=== PATIENT | female | born 1995 | race Caucasian/White ===

== ENCOUNTER → 2022-08-21 10:18 | Outpatient (CLI) | payer OTHER, SELFPAY ==
[2022-08-22 20:48] LABS: Strep Grp B PCR POS for Grp B Strep
== END ==
PROVIDERS: Visit Provider Specialist
DX: O10.913 Unspecified pre-existing hypertension complicating pregnancy, third trimester (principal); Z3A.35 35 weeks gestation of pregnancy
CPT/HCPCS: 87653

== ENCOUNTER → 2022-08-21 10:29 | Outpatient (CLI) | payer OTHER, SELFPAY ==
[2022-08-21 12:44] LABS: Add Manual Diff / Slide Review NO; Basophils Absolute Auto 0 /uL (0-100); Basophils Percent Auto 0.7 % (0-2); Eosinophils Absolute Auto 0 /uL (0-450); Eosinophils Percent Auto 0.5 % (2-4); Hematocrit 33.9 % (36-46); Hemoglobin 11.3 g/dL (12.0-16.0); Lymphocytes Absolute Auto 1200 /uL (1100-4500); Lymphocytes Percent Auto 19.3 % (25-40); Mean Corpuscular HGB Conc 33.2 % (30-36); Mean Corpuscular Volume 84.6 fL (80-100); Monocytes Absolute Auto 300 /uL (0-900); Monocytes Percent Auto 5.4 % (3-14); Neutrophils Absolute Auto 4600 /uL (1500-7000); Neutrophils Percent Auto 74.1 % (50-75); Platelet Count 164 X10^3/uL (150-400); Red Blood Cell Count 4.01 X10^6/uL (4.0-5.2); Red Cell Distribution Width 13.6 % (11.6-14.8); White Blood Cell Count 6.2 X10^3/uL (4.5-11.0)
[2022-08-21 13:26] LABS: Alanine Aminotransferase 13 IU/L (<35); Aspartate Aminotransferase 13 IU/L (14-36); BUN Creatinine Ratio 15.1 (6-22); Blood Urea Nitrogen 8 mg/dL (7-17); Estimated Glomerular Filt Rate > 60 mL/min (>60); Uric Acid 4.5 mg/dL (2.5-6.2)
== END ==
PROVIDERS: Referring Provider Specialist; Visit Provider Specialist
DX: O10.913 Unspecified pre-existing hypertension complicating pregnancy, third trimester (principal)
CPT/HCPCS: 36415; 82565; 84450; 84460; 84520; 84550; 85025; 87653

== ENCOUNTER 2022-08-21 10:37 | Outpatient (CLI) | payer OTHER, SELFPAY ==
--- NOTE | 2022-08-21 13:15 | P.TNLD_ITS ---
Visit Information Visit Information Date of evaluation: 08/21/22 Primary OB Provider: Taqueria Mota On-call OB Provider: Leila Alcala Reason for Evaluation: Yes non-stress test non-stress test reason: hypertension/pre-eclampsia Vital Signs Vital Signs: Blood pressure 122/74 [facility] Medical History (Updated 08/21/22 @ 13:16 by Leila Alcala MD) Anxiety Migraine hemorrhage Preeclampsia Surgical History (Updated 08/15/22 @ 10:18 by Elo Chen, RN) H/O endoscopy History of shoulder surgery Family History (Updated 08/15/22 @ 10:23 by Elo Chen, RN) Grandfather Heart disease Heart attack Melanoma Mother Gallstones Hx of cholecystectomy Father Depression Social History marital status: number of children: 1 household members: spouse and children lives independently: Yes housing: house pets and animals: Yes education level: college (some college) occupational status: previously employed current occupational exposures/hazards: No special soledad needs: No travel history: recent (domestic move only) water heater temp set < 120 deg: Yes working smoke detector in home: Yes fire extinguisher in home: Yes carbon monox detector in home: Yes firearms in home: No do you feel safe at home: Yes Smoking Status: Never smoker second hand exposure: No alcohol intake: former (occasionally when not ) substance use type: does not use during the past year weight has: remained stable well-balanced diet: daily or most days daily servings fruits/ve-4 caffeine: Yes (aware of 200mg limit) Type(s) of exercise: walking frequency: daily duration: 15-30 minutes/day Evaluation Evaluation Baseline heart rate: 130 Variability: Moderate (11-25) monitor accelerations: Present Monitor Decelerations: Absent Contraction Frequency (minutes): 8 Uterine Contraction Intensity: Mild Category of Tracing: Reactive Status: Category l Diagnosis, Plan/Disposition Final Diagnosis (1) Chronic hypertension with exacerbation during in third trimester: Status: Acute (2) 35 weeks gestation of : Status: Acute Plan/Disposition Plan: Baseline pH labs were drawn and pending. Patient will be having weekly nonstress test for chronic hypertension. OB Disposition: home
== END 2022-08-21 11:36 | disposition home or self-care (01) ==
LOC: LABOR 11:23 → OB 08-28 14:12
PROVIDERS: Referring Provider Family Medicine; Visit Provider Family Medicine
DX: O10.913 Unspecified pre-existing hypertension complicating pregnancy, third trimester (principal); Z3A.35 35 weeks gestation of pregnancy
CPT/HCPCS: 36415; 59025; 82565; 84450; 84460; 84520; 84550; 85025; 87653; G0378; G0379

== ENCOUNTER 2022-08-29 14:27 | Outpatient (CLI) | payer OTHER, SELFPAY ==
--- NOTE | 2022-08-29 15:21 | P.TNLD_ITS ---
Visit Information Visit Information Date of evaluation: 08/29/22 Primary OB Provider: Leila Alcaal Reason for Evaluation: Yes non-stress test non-stress test reason: hypertension/pre-eclampsia Vital Signs Vital Signs: Blood pressure 131/84, pulse 100, temperature 36.1? [facility] Medical History (Updated 08/29/22 @ 14:24 by Leila Alcala MD) Anxiety (~2008) Depression (~2008) Migraine hemorrhage Preeclampsia Surgical History (Updated 08/28/22 @ 20:47 by Candy Salgado) Anesthesia H/O endoscopy (~2009) History of shoulder surgery (~2010) Family History (Updated 08/28/22 @ 20:49 by Candy Salgado) Grandfather Heart disease Heart attack Melanoma Cancer Mother Gallstones Hx of cholecystectomy Depression Anxiety Mental health problem Father Depression Mental health problem Grandmother Heart disease Social History marital status: number of children: 1 household members: spouse and children lives independently: Yes housing: house pets and animals: Yes education level: college (some college) occupational status: previously employed current occupational exposures/hazards: No special soledad needs: No travel history: recent (domestic move only) water heater temp set < 120 deg: Yes working smoke detector in home: Yes fire extinguisher in home: Yes carbon monox detector in home: Yes firearms in home: No do you feel safe at home: Yes Smoking Status: Never smoker second hand exposure: No alcohol intake: former (occasionally when not ) substance use type: does not use during the past year weight has: remained stable well-balanced diet: daily or most days daily servings fruits/ve-4 caffeine: Yes (aware of 200mg limit) Type(s) of exercise: walking frequency: daily duration: 15-30 minutes/day Evaluation Evaluation Baseline heart rate: 125 Variability: Moderate (11-25) monitor accelerations: Present Monitor Decelerations: Absent Category of Tracing: Reactive Status: Category l Comments: Ultrasound good amniotic fluid volume, good movement, tone, breathing Diagnosis, Plan/Disposition Final Diagnosis (1) 37 weeks gestation of : Status: Acute (2) Chronic hypertension with exacerbation during in third trimester: Status: Acute Plan/Disposition Plan: Patient is to increase her labetalol to 100 mg in a.m., 100 mg mid day, and 200 mg p.m. as she states the higher dose of labetalol makes her feel slightly dizzy. Continue weekly exams and biophysical profiles. OB Disposition: home
== END 2022-08-29 15:25 | disposition home or self-care (01) ==
LOC: LABOR 14:30 → OB 08-30 11:04
PROVIDERS: Referring Provider Family Medicine; Visit Provider Family Medicine
DX: O10.913 Unspecified pre-existing hypertension complicating pregnancy, third trimester (principal); Z3A.37 37 weeks gestation of pregnancy
CPT/HCPCS: 59025; 76815; G0378; G0379

== ENCOUNTER 2022-09-06 13:04 | Outpatient (CLI) | payer OTHER, SELFPAY | END 2022-09-06 13:40 | disposition home or self-care (01) | LOC: LABOR 13:50 → OB 09-10 08:51 | PROVIDERS: Referring Provider Obstetrics & Gynecology; Visit Provider Obstetrics & Gynecology | DX: O13.3 Gestational [pregnancy-induced] hypertension without significant proteinuria, third trimester (principal); Z3A.38 38 weeks gestation of pregnancy | CPT/HCPCS: 59025; G0378; G0379 ==

== ENCOUNTER 2022-09-10 02:07 | Inpatient (IN) | payer OTHER, SELFPAY ==
[2022-09-10 04:33] LABS: Add Manual Diff / Slide Review NO; Basophils Absolute Auto 0 /uL (0-100); Basophils Percent Auto 0.5 % (0-2); Eosinophils Absolute Auto 0 /uL (0-450); Eosinophils Percent Auto 0.5 % (2-4); Hematocrit 35.7 % (36-46); Hemoglobin 11.8 g/dL (12.0-16.0); Lymphocytes Absolute Auto 1700 /uL (1100-4500); Mean Corpuscular HGB Conc 33.2 % (30-36); Mean Corpuscular Hemoglobin 28.5 PG (26-34); Mean Corpuscular Volume 85.9 fL (80-100); Monocytes Absolute Auto 400 /uL (0-900); Monocytes Percent Auto 6.5 % (3-14); Neutrophils Absolute Auto 4300 /uL (1500-7000); Neutrophils Percent Auto 66.5 % (50-75); Platelet Count 137 X10^3/uL (150-400); Red Blood Cell Count 4.16 X10^6/uL (4.0-5.2); Red Cell Distribution Width 17.1 % (11.6-14.8); White Blood Cell Count 6.5 X10^3/uL (4.5-11.0)
[2022-09-10] MEDS: PENICILLIN G POTASSIUM 5,000,000 UNIT in DEXTROSE 5% IN WATER 250 ML 250 UNIT IV (04:33)
[2022-09-10] MEDS: LACTATED RINGERS 1,000 ML 100 ML IV ×2 (04:33→07:23)
[2022-09-10 04:40] LABS: Aspartate Aminotransferase 13 IU/L (14-36); BUN Creatinine Ratio 17.2 (6-22); Blood Urea Nitrogen 10 mg/dL (7-17); COVID19 -Nasal RAPID Negative (Negative); Estimated Glomerular Filt Rate > 60 mL/min (>60); Uric Acid 5.8 mg/dL (2.5-6.2)
[2022-09-10 05:47] VITALS: BP 167/94; PULSE 102
[2022-09-10] MEDS: LABETALOL 20 MG/4 ML SYRINGE 10 MG IV (05:47)
[2022-09-10 06:33] VITALS: BP 148/89
[2022-09-10 06:57] LABS: Add Manual Diff / Slide Review NO; Basophils Absolute Auto 0 /uL (0-100); Basophils Percent Auto 0.6 % (0-2); Eosinophils Absolute Auto 0 /uL (0-450); Eosinophils Percent Auto 0.3 % (2-4); Hematocrit 34.5 % (36-46); Hemoglobin 11.5 g/dL (12.0-16.0); Lymphocytes Absolute Auto 1400 /uL (1100-4500); Lymphocytes Percent Auto 21.4 % (25-40); Mean Corpuscular HGB Conc 33.5 % (30-36); Mean Corpuscular Hemoglobin 28.7 PG (26-34); Mean Corpuscular Volume 85.8 fL (80-100); Monocytes Absolute Auto 500 /uL (0-900); Monocytes Percent Auto 6.8 % (3-14); Neutrophils Absolute Auto 4800 /uL (1500-7000); Neutrophils Percent Auto 70.9 % (50-75); Platelet Count 133 X10^3/uL (150-400); Red Blood Cell Count 4.02 X10^6/uL (4.0-5.2); Red Cell Distribution Width 17.2 % (11.6-14.8); White Blood Cell Count 6.7 X10^3/uL (4.5-11.0)
[2022-09-10 07:06] LABS: Aspartate Aminotransferase 14 IU/L (14-36); BUN Creatinine Ratio 15.1 (6-22); Blood Urea Nitrogen 8 mg/dL (7-17); Estimated Glomerular Filt Rate > 60 mL/min (>60); Uric Acid 5.3 mg/dL (2.5-6.2)
[2022-09-10] MEDS: FENT 2MCG/ML BUPIV 0.125% EPI 200 MCG/100 ML PLAST..BAG 8 MCG EPIDURAL (07:06)
--- NOTE | 2022-09-10 07:21 | P.HPOB_ITS ---
OB HPI Date/Time Date of admission: 09/10/22 Date Patient Seen: 09/10/22 Time Patient Seen: 07:21 History of Present Condition Chief complaint: Labor NATALIIA Calculator Estimated Delivery Date Method Current WG Current Estimate 09/19/22 Manual 38w 5d Estimated Gestational Age (weeks): 39 : 2 Para: 1 Narrative: Patient is a 27-year-old 2 para 1 who transferred at 35 weeks gestation from [place]. She has had some elevated blood pressures over her last few office visits. She was scheduled for an induction this morning but came in in active labor at 3:00 a.m.. Patient had an epidural placed. care: good care, number of visits (10) and pounds weight gain (22) Dating criteria OB: LMP confirmed by 1st trimester US Ultrasounds: normal 1st trimester US and normal mid trimester US Obstetrical complications: gestational hypertension Medical complications OB: none Preadmission Labs Last OB Lab Results: Blood Type O Positive 09/10/22 04:00 Antibody Screen Negative 09/10/22 04:00 Hematocrit 34.5 % (36-46) L 09/10/22 06:40 Hemoglobin 11.5 g/dL (12.0-16.0) L 09/10/22 06:40 Group B Streptococcus (PCR) Pos for grp b strep H 08/21/22 10:1 8 -: Chlamydia screen: negative, Gonorrhea screen: negative and Urine: negative -: PAP smear: Normal External Labs -: Urine: negative Prior (ies) Past Pregnancies Del. Date GA/Weeks Labor Lgth Wt Sex Route Outcome Anesthesia Place Delv Breastfeed Preg Comp Name 11/05/18 37.3 24 6 lb 6 oz Male vaginal live - full [place], [place] 18 months pre-eclampsia José Manuel Delivery Date: 11/05/18 Last Updated by: Elo Chen RN cord -> PPH requiring transfusion Evaluation Evaluation Baseline heart rate: 120 Variability: Moderate (11-25) monitor accelerations: Present Monitor Decelerations: Absent Contraction Frequency (minutes): 4 Uterine Contraction Intensity: Strong/Firm Status: Category l Dilation (cm): 5 Effacement (%): 100 station: -1 [facility] Medical History (Updated 09/06/22 @ 15:30 by Maya Ramos PA-C) 37 weeks gestation of Anxiety (~2008) Depression (~2008) Migraine hemorrhage Preeclampsia Surgical History (Updated 08/28/22 @ 20:47 by Candy Salgado) Anesthesia H/O endoscopy (~2009) History of shoulder surgery (~2010) Family History (Updated 08/28/22 @ 20:49 by Candy Salgado) Grandfather Heart disease Heart attack Melanoma Cancer Mother Gallstones Hx of cholecystectomy Depression Anxiety Mental health problem Father Depression Mental health problem Grandmother Heart disease Social History marital status: number of children: 1 household members: spouse and children lives independently: Yes housing: house pets and animals: Yes education level: college (some college) occupational status: previously employed current occupational exposures/hazards: No special soledad needs: No travel history: recent (domestic move only) water heater temp set < 120 deg: Yes working smoke detector in home: Yes fire extinguisher in home: Yes carbon monox detector in home: Yes firearms in home: No do you feel safe at home: Yes Smoking Status: Never smoker second hand exposure: No alcohol intake: former (occasionally when not ) substance use type: does not use during the past year weight has: remained stable well-balanced diet: daily or most days daily servings fruits/ve-4 caffeine: Yes (aware of 200mg limit) Type(s) of exercise: walking frequency: daily duration: 15-30 minutes/day Meds Home Medications and Allergies Home Medications Medication Instructions Recorded Confirmed Type aspirin 81 mg tablet,delayed 81 mg PO DAILY 08/15/22 09/10/22 History release labetalol 100 mg tablet 100 mg PO TID 08/15/22 09/10/22 History prenat.vits,raghavendra,[id number] 1 tab PO DAILY 08/15/22 09/10/22 History venlafaxine 150 mg 150 mg PO DAILY 08/15/22 09/10/22 History capsule,extended release 24 hr (Effexor XR) Allergies Allergy/AdvReac Type Severity Reaction Status Date / Time No Known Drug Allergies Allergy Verified 09/10/22 04:34 OB Exam Narrative Exam Narrative: Generally: Patient comfortable with epidural Lungs: Clear to auscultation bilaterally Cardiovascular: Regular rate and rhythm Fundal height: 39 cm Estimated weight: 7 lb Extremities: Trace edema, 1+ DTRs Objective Labs Result Diagrams: 09/10/22 06:40 09/10/22 06:40 Labs: Laboratory Results - last 24 hr 09/10/22 09/10/22 09/10/22 04:00 04:00 04:00 WBC 6.5 RBC 4.16 Hgb 11.8 L Hct 35.7 L MCV 85.9 MCH 28.5 MCHC 33.2 RDW 17.1 H Plt Count 137 L Neut % (Auto) 66.5 Lymph % (Auto) 26.0 [place] % (Auto) 6.5 Eos % (Auto) 0.5 L Baso % (Auto) 0.5 Neut # (Auto) 4300 Lymph # (Auto) 1700 [place] # (Auto) 400 Eos # (Auto) 0 Baso # (Auto) 0 BUN 10 Creatinine 0.58 Estimated GFR > 60 BUN/Creatinine Ratio 17.2 Uric Acid 5.8 AST 13 L SARS-CoV-2 (PCR) Blood Type O Positive Antibody Screen Negative 09/10/22 09/10/22 09/10/22 04:00 06:40 06:40 WBC 6.7 RBC 4.02 Hgb 11.5 L Hct 34.5 L MCV 85.8 MCH 28.7 MCHC 33.5 RDW 17.2 H Plt Count 133 L Neut % (Auto) 70.9 Lymph % (Auto) 21.4 L [place] % (Auto) 6.8 Eos % (Auto) 0.3 L Baso % (Auto) 0.6 Neut # (Auto) 4800 Lymph # (Auto) 1400 [place] # (Auto) 500 Eos # (Auto) 0 Baso # (Auto) 0 BUN 8 Creatinine 0.53 Estimated GFR > 60 BUN/Creatinine Ratio 15.1 Uric Acid 5.3 AST 14 SARS-CoV-2 (PCR) Negative Blood Type Antibody Screen Assessment and Plan Assessment and Plan Assessment and Plan narrative: Assessment: 27-year-old 2 para 1 at estimated gestational age of 39 weeks gestation Was scheduled for induction this morning due to gestational hypertension, but came in in active labor Comfortable with epidural Group B strep positive Plan: Group B strep prophylaxis started Will wait to rupture membranes and till second dose is in Expected management to spontaneous vaginal delivery Time Spent with Patient Total time spent with greater than 50% in coordination of care (as documented) at patient's floor/unit and/or counseling patient:: 15-24 minutes
[2022-09-10] MEDS: PENICILLIN G POTASSIUM 3,000,000 UNIT/50 ML FROZ.PIGGY 100 UNIT IV (09:19)
--- NOTE | 2022-09-10 13:08 | PM.OBPNLAB ---
Date/Time Date Patient Seen: 09/10/22 Time Patient Seen: 13:08 Pain Control Pain control: epidural Pelvic Exam Dilation (cm): 10 Effacement (%): 100 station: +2 Amniotic membrane status: Bulging Contractions Contractions on admission: regular Monitor mode: External Contraction frequency (min): 3 Contraction duration (min): 1 Contraction pattern: Regular Contraction intensity: Strong/Firm Status status: Category l Heart Rate Baseline: 120 Monitor Accelerations: Present Monitor Decelerations: Absent Monitor Variability: Moderate Assessment and Plan Assessment: active labor Comments: Begin pushing Expectant management to
--- NOTE | 2022-09-10 13:42 | P.PCNOB_ITS ---
Events: Induced HTN Labor & Delivery Delivery date: 09/10/22 Cervical ripening method: none Induction method: none Delivery augmentation: rupture of membranes Delivery monitor: external FHT and external uterine Route of delivery: Episiotomy description: None L&D Laceration Description: Superficial (periurethral) Delivery repair: chromic Estimated blood loss (mL): 150 Anesthesia Type: Epidural Complications: None Narrative: Artificial rupture membranes was performed with copious clear amniotic fluid. The patient pushed with 2 contractions. At 1:18 p.m., a live female delivered spontaneously in the MARSHA presentation. No nuchal cord. The remainder of the body delivered and there was found to be a body cord which was reduced. The was placed on mom's abdomen. The cord was double clamped and cut after the cord stopped pulsing. Cord bloods were obtained. The placenta delivered intact with a three-vessel cord at 1:26 p.m.. Fundus was massaged to firm. Pitocin was given in the IV fluids after cord bloods were obtained. Bilateral superficial periurethral lacerations were repaired with 3-0 chromic in the usual fashion. Hemostasis was achieved. Weight 7 lb 0.4 oz. Apgars 7 at 1 minute 9 at 5 minutes. . Epidural analgesia. Mom and infant stable to recovery. Estimated blood loss 150 cc. [place] Baby 1: Infant gender: Female Presentation: vertex Position: Left Occiput Anterior Placenta delivery description: Spontaneous Cord Vessel Description: 3 Vessels, Clamped/Cut and Around Body x1 score (1 min): 7 score (5 min): 9 weight: 7 lb 0.4 oz Plan for aftercare: Routine care
--- NOTE | 2022-09-10 18:21 | P.EN_ITS ---
Event Note Date Patient Seen: 09/10/22 Time Patient Seen: 18:21 Event Note (Rapid Response, Code, or fall): Called to see patient 5 hours after delivery for passing out after standing up from the bed. Upon entering the room the patient was lying in the bed. Her bleeding was moderate. Blood pressure 117/68. Patient reports that she stood up next to the bed and felt faint and was put down on the bed again. No significant bleeding. A Ramirez catheter was placed and there was very conc entrated urine in the bladder. A fluid bolus was given. Patient was stable.
[2022-09-10 22:06] VITALS: BP 132/93; PULSE 92
[2022-09-10] MEDS: LABETALOL 100 MG TABLET PO (22:06)
[2022-09-11] MEDS: ACETAMINOPHEN 325 MG TABLET 650 MG PO ×3 (01:41→15:08)
[2022-09-11] MEDS: IBUPROFEN 600 MG TABLET PO ×3 (01:41→15:08)
[2022-09-11 06:37] LABS: Hematocrit 27.2 % (36-46); Hemoglobin 9.2 g/dL (12.0-16.0)
[2022-09-11] MEDS: PRENATAL VIT,CALC/IRON/FOLIC 1 TABLET 1 TAB PO (09:13)
[2022-09-11] MEDS: DOCUSATE 100 MG CAPSULE PO (09:14)
[2022-09-11] MEDS: VENLAFAXINE ER 75 MG CAP 150 MG PO (09:14)
[2022-09-11 09:15] VITALS: TEMP 36.4
[2022-09-11 10:35] VITALS: BP 133/87; PULSE 103
[2022-09-11] MEDS: LABETALOL 100 MG TABLET PO (10:35)
[2022-09-11 11:00] VITALS: BP 113/80; PULSE 104
--- NOTE | 2022-09-11 12:53 | P.DS_ITS ---
Discharge Providers Provider Date of admission: 09/10/22 02:07 Discharge Date: 09/11/22 Consults: 09/11/22 13:37 Consult to Patient Intake Coordinator Routine Comment: Discharge provider: Robina Covarrubias MD Summary Hospital Course Date Patient Seen: 09/11/22 Time Patient Seen: 12:53 Diagnoses: 38-,5/7 weeks gestation Spontaneous labor Epidural analgesia Artificial rupture of membranes Spontaneous vaginal delivery Bilateral periurethral superficial laceration and repair Syncopal episode following delivery Hospital Course: Patient is a 27-year-old 2 para 2 who presented at 3:00 a.m. on September 10, 2022 in active labor. She received an epidural for pain management. Just before delivery artificial rupture of membranes was performed with copious clear amniotic fluid. She had a spontaneous vaginal delivery without complication. She had bilateral periurethral superficial lacerations which were repaired. 5 hours after delivery she had a syncopal episode upon getting out of bed. Blood pressure was stable. She was found to have very concentrated urine. A fluid bolus was given and she felt much better. She is discharged home on day # 1. Peripartum Data Delivery Method: Natural Vaginal Laceration Description: Superficial (Bilateral periurethral) Episiotomy description: None Procedures: Epidural analgesia Artificial rupture of membranes Spontaneous vaginal delivery Repair of superficial periurethral laceration complications: other (Syncope episode) 1: Gender: Female Disposition of : home Status at Discharge Cognitive/behavioral status at discharge: oriented Functional status at discharge: independent ambulation Overall status at discharge: patient is progressing back to baseline Time Spent with Patient Time attestation: Total time spent providing and/or coordinating discharge services: Time spent: Less than 30 minutes Objective Labs Result Diagrams: 09/11/22 06:18 09/10/22 06:40 Labs: Laboratory Results - last 24 hr 09/11/22 06:18 Hgb 9.2 L Hct 27.2 L Exam Vital Signs (past 8 hours): - 09/11/22 09:15 09/11/22 09:15 09/11/22 10:35 Temperature 97.5 F L 97.5 F L Pulse Rate 103 H Blood Pressure 133/87 Narrative Exam Narrative: Generally: Patient is sitting up in bed, no acute distress Fundus: Firm at U -1 Extremities: Trace edema, negative Hom[place] Discharge Plan Discharge Plan Patient Disposition: Home Provider Discharge Comment: Call with fever, chills, or bleeding vaginally more than a pad in an hour Ibuprofen 600 mg every 6 hours as needed for cramping Tylenol 650 mg every 6 hours as needed Discharge orders & Medications Prescriptions: New labetalol 100 mg tablet 100 mg PO BID Qty: 60 3RF Continued prenat.vits,raghavendra,[id number] Tablet 1 tab PO DAILY venlafaxine [Effexor XR] 150 mg capsule,extended release 24hr 150 mg PO DAILY Discontinued labetalol 100 mg tablet 100 mg PO TID aspirin 81 mg tablet,delayed release (DR/EC) 81 mg PO DAILY Follow up/Referrals: Maya Ramos PACamC [Advanced Type Disk Quality Control Supervisor] - 6 Weeks Diet/Activity/Treatments Diet: Regular Skin/Wound/Dressing Care Report to your healthcare provider any signs of infection, such as:: chills, fever, increased pain and unusual drainage Visit Report/Discharge Packet Instructions: DI for Labor and Delivery, Vaginal
[2022-09-11 14:09] VITALS: BP 121/84; PULSE 100; RESP 18; TEMP 36.8
== END 2022-09-11 15:30 | disposition home or self-care (01) | DRG 807 ==
PROVIDERS: Admitting Provider Obstetrics & Gynecology; Referring Provider Obstetrics & Gynecology; Visit Provider Obstetrics & Gynecology
DX: O13.4 Gestational [pregnancy-induced] hypertension without significant proteinuria, complicating childbirth (principal); Z37.0 Single live birth; O14.94 Unspecified pre-eclampsia, complicating childbirth; O99.820 Streptococcus B carrier state complicating pregnancy; Z3A.38 38 weeks gestation of pregnancy; O71.82 Other specified trauma to perineum and vulva; O99.893 Other specified diseases and conditions complicating puerperium; R55 Syncope and collapse; Z20.822 Contact with and (suspected) exposure to COVID-19
CPT/HCPCS: 01967; 36415; 59050; 59410; 84450; 84550; 85014; 85018; 85025; 86850; 86900; 86901; 87635; C9803; G0379; J2540

== ENCOUNTER → 2022-10-25 12:24 | Outpatient (CLI) | payer OTHER, SELFPAY ==
[2022-10-26 16:29] LABS: Candida species Negative (Negative); Gardnerella vaginalis Positive (Negative); Trichomoas vaginalis Negative (Negative)
== END ==
PROVIDERS: Visit Provider Physician Assistant Medical
DX: N89.8 Other specified noninflammatory disorders of vagina (principal)
CPT/HCPCS: 87480; 87510; 87660

== ENCOUNTER → 2022-11-21 11:29 | Outpatient (CLI) | payer OTHER, SELFPAY ==
[2022-11-21 13:19] LABS: Appearance Urine UA SL CLOUDY; Bilirubin Urine UA NEGATIVE (NEGATIVE); Color Urine UA YELLOW; Glucose Urine UA NEGATIVE (Negative); Ketones Urine UA NEGATIVE (NEGATIVE); Leukocyte Esterase Urine UA NEGATIVE (NEGATIVE); Nitrite Urine UA POSITIVE (Negative); Occult Blood Urine UA TRACE-LYSED (Negative); Protein Urine UA NEGATIVE (Negative); Urobilinogen Urine UA 0.2 E.U./dL (0.2)
[2022-11-21 13:26] LABS: Bacteria Urine Many (>30); Culture Indicated Urine Cult Not Indicated; RBC Urine None Seen (0-5/HPF); Squamous Epithelial Cell Urine 1-5 /HPF (0-5/HPF); WBC Urine 5-10/HPF (0-5/HPF)
[2022-11-22 14:04] LABS: Candida species Positive (Negative); Gardnerella vaginalis Positive (Negative); Trichomoas vaginalis Negative (Negative)
== END ==
PROVIDERS: Visit Provider Obstetrics & Gynecology
DX: N89.8 Other specified noninflammatory disorders of vagina (principal); R35.0 Frequency of micturition
CPT/HCPCS: 81001; 87077; 87086; 87186; 87480; 87510; 87660

== ENCOUNTER → 2022-12-04 12:53 | Outpatient (CLI) | payer OTHER, SELFPAY ==
[2022-12-06 18:11] LABS: Candida species Positive (Negative); Gardnerella vaginalis Positive (Negative); Trichomoas vaginalis Negative (Negative)
== END ==
PROVIDERS: Visit Provider Physician Assistant Medical
DX: N89.8 Other specified noninflammatory disorders of vagina (principal)
CPT/HCPCS: 87070; 87077; 87205; 87480; 87510; 87660